=== PATIENT | female | born 1965 | race Caucasian/White ===

== ENCOUNTER 2017-07-17 06:47 | Day surgery (SDC) | payer OTHER ==
[~2017-07-17 06:47] MED LIST: Lactated Ringers 1,000 ML IV SCH
[2017-07-17] MEDS ORDERED: Midazolam 1 MG/ML 2 ML SDV IV ONE (06:48)
[2017-07-17] MEDS ORDERED: Lidocaine 2% 100 MG/5 ML Syringe IVPUSH ONE (06:48)
[2017-07-17] MEDS ORDERED: Propofol 200 MG/20 ML SDV IV ONE (06:48)
--- NOTE | 2017-07-17 08:25 | PCM.OPNOTE ---
- General Post-Op/Procedure Note Date of Surgery/Procedure: 07/17/17 Operative Procedure(s): c scope with bx Findings: ascending colon polyp sigmoid diverticulosis scattered. Pre Op Diagnosis: screening Post-Op Diagnosis: ascending colon polyp. sigmoid diverticulosis scattered. Anesthesia Technique: MAC Primary Surgeon: Bryson Grey Anesthesia Provider: Frida Carbajal Pathology: colon polyp Complications: None Condition: Good Free Text/Narrative:: see dictation
--- NOTE | 2017-07-17 09:49 | OR ---
DATE OF OPERATION: 07/17/2017 SURGEON: Bryson Grey MD PROCEDURE PERFORMED: Colonoscopy with cold forceps biopsy. PREOPERATIVE DIAGNOSIS: Need for screening C-scope. POSTOPERATIVE DIAGNOSIS: Scattered sigmoid diverticulosis and ascending colon polyp. INDICATIONS FOR PROCEDURE: This is a 51-year-old white female who presents for her initial screening colonoscopy. She was offered and accepted same. DESCRIPTION OF OPERATION: After an excellent IV sedation was administered, digital rectal exam was performed. No marked abnormality was noted. Flexible colonoscope was inserted and advanced to the cecum without difficulty. The prep was excellent. The following findings were noted: Ascending colon, near the hepatic flexure, a small polypoid lesion appearing consistent with hyperplasia. This was biopsied with cold biopsy forceps and sent for permanent. The transverse colon was unremarkable. Descending colon was unremarkable. Sigmoid had an occasional scattered diverticula. Rectum and anus unremarkable. Colon was deflated. The scope was removed. The patient tolerated the procedure well and was taken to recovery in good condition. /[id number] CRISTA/HUNTER
== END 2017-07-17 09:50 | disposition home or self-care (01) ==
LOC: FB.SDS 06:47
PROVIDERS: ATTEND Surgery
DX: Z12.11 Encounter for screening for malignant neoplasm of colon (principal); K57.30 Diverticulosis of large intestine without perforation or abscess without bleeding; Z79.899 Other long term (current) drug therapy; Z90.49 Acquired absence of other specified parts of digestive tract; Z98.890 Other specified postprocedural states; Z87.891 Personal history of nicotine dependence
CPT/HCPCS: 45380; 81025; J2250; J2704; J7120; 88305

== ENCOUNTER 2022-11-01 08:23 | Day surgery (SDC) | payer BC ==
[2022-11-01] MEDS ORDERED: Ondansetron 4 MG/2 ML SDV IVPUSH ONE (08:24)
[2022-11-01] MEDS ORDERED: fentaNYL 100 MCG/2 ML SDV IV ONE (08:24)
[2022-11-01] MEDS ORDERED: Midazolam 1 MG/ML 2 ML SDV IV ONE (08:24)
[2022-11-01] MEDS ORDERED: Propofol 200 MG/20 ML SDV IV ONE (08:24)
[2022-11-01] MEDS ORDERED: Lactated Ringers 1,000 ML IV SCH (08:30)
[2022-11-01] MEDS ORDERED: Sodium Chloride 0.9% 10 ML Syringe FLUSH PRN (08:30)
[2022-11-01] MEDS ORDERED: ceFAZolin 1 GM in Sodium Chloride 0.9% 50 ML IV ONE (09:45)
[2022-11-01] MEDS ORDERED: ceFAZolin 1 GM Vial IVPUSH ONE (09:45)
[2022-11-01] MEDS ORDERED: Lidocaine 1% with EPINEPHrine 1:100,000 20 ML MDV INJECT ONE (11:26)
[2022-11-01] MEDS ORDERED: Bupivacaine 0.5% 30 ML SDV INJECT ONE (11:26)
== END 2022-11-01 12:43 | disposition home or self-care (01) ==
LOC: FB.SDS 08:23
PROVIDERS: ATTEND Surgery
DX: D17.1 Benign lipomatous neoplasm of skin and subcutaneous tissue of trunk (principal); G43.909 Migraine, unspecified, not intractable, without status migrainosus; G47.00 Insomnia, unspecified; Z79.899 Other long term (current) drug therapy; Z87.891 Personal history of nicotine dependence
CPT/HCPCS: 00300; 88304; J0690; J2250; J2405; J2704; J3010; J3490; J7120